=== PATIENT | female | born 1995 | race African-American/Black ===

== ENCOUNTER 2017-10-05 11:16 | Emergency (ER) | payer SELFPAY ==
[~2017-10-05] VITALS: Ht 160 cm; Wt 86.0 kg
[2017-10-05] MEDS ORDERED: IBUPROFEN 600MG TABLET PO ONE (14:30)
[2017-10-05 14:31] VITALS: BP 172/96
== END 2017-10-05 15:16 | disposition home or self-care (01) ==
LOC: ER 11:27
DX: R51 Headache (principal); M54.2 Cervicalgia; V43.52XA Car driver injured in collision with other type car in traffic accident, initial encounter; Y93.89 Activity, other specified; Y99.8 Other external cause status; Y92.410 Unspecified street and highway as the place of occurrence of the external cause
CPT/HCPCS: 99283